=== PATIENT | female | born 1985 | race Caucasian/White ===

== ENCOUNTER 2017-04-16 22:17 | Emergency (ER) | payer MEDICAID, OTHER ==
[~2017-04-16] VITALS: Ht 157.5 cm; Wt 63.0 kg
[2017-04-16 22:22] VITALS: Ht 157.5 cm; Wt 63.0 kg
[2017-04-17] MEDS ORDERED: KETOROLAC 30 MG INJ IM STA (01:12)
[2017-04-17 01:39] LABS: URINE BLOOD (Dip) POC Trace-lysed (NEGATIVE)
--- NOTE | 2017-04-17 01:45 | RADRPT ---
PROCEDURE: CT Head without. CLINICAL INDICATION: Headache for 2 weeks. TECHNIQUE: The study was performed utilizing a multi-slice, multidetector CT scanner. Direct spira l 1 mm axial sections were obtained through the head without the use of intravenous contrast materia l. 1 or more of the following dose reduction techniques were utilized: Automated exposure control, adjustment of the mA and/or kV according to patient's size, iterative reconstruction technique. Co jewels and sagittal reformations were obtained. The images were reviewed on a PACS workstation. RADIATION DOSE: CTDIvol: 44.9 mGyDLP: 720.2 mGy-cm COMPARISON: No prior studies are available for comparison. FINDINGS: There is no intracranial hemorrhage, extra-axial fluid collection, mass lesion, midline shift or hyd rocephalus. The ventricles, sulci and cisterns are within normal limits. The white matter is unrem arkable. The brooks-white matter differentiation is preserved. The basal cisterns are patent. The m idline structures are intact. The orbits, calvarium and extracranial soft tissues are normal in herberth earance. The visualized paranasal sinuses, mastoid air cells and middle ear cavities are normally ae rated. There is pneumatization of the bilateral petrous apices without evidence of inflammatory berman ges, normal variant. IMPRESSION: 1. No acute intracranial abnormality. No intracranial hemorrhage, extra-axial fluid collection, ma ss lesion or hydrocephalous. RPTAT: HGAS .El Son MD, Date Time Electronically viewed and signed by .El Son MD, on 04/17/2017 01:45 .S/
--- NOTE | 2017-04-17 01:48 | ERD ---
ER Documentation Chief Complaint Date/Time DATE: 04/17/17 TIME: 01:46 Chief Complaint on and off headaches x 2 weeks HPI 31-year-old female otherwise healthy comes to the emergency department with worsening headache over the last 2 weeks, she states that she has had headaches for approximately 1 year now. She describes as throbbing, moderate to severe, bitemporal, throughout the day and reports that she has headaches almost every day. This is a same headache she has had for a year, however pain has become worse. She usually takes Tylenol however she has not tried anything today. She is requesting imaging at this time as she has never had imaging for these headaches for the past year. She has not had any fever, chills, blurry vision, paresthesias or weakness. ROS All systems reviewed and are negative except as per history of present illness. Medications Home Meds Active Scripts Acetamin/Butalbital/Caffeine* (Fioricet*) [id number] Tab, 1 TAB PO Q6H Y for PAIN, #20 TAB Prov:PIA BEST PA-C 04/17/17 Nitrofurantoin Monohyd Macrocr* (Macrobid*) 100 Mg Capsr, 100 MG PO BID for 7 Days, CAP Prov:PIA BEST PA-C 04/17/17 Naproxen* (Naprosyn*) 500 Mg Tablet, 500 MG PO BID Y for PAIN AND/OR INFLAMMATION, #30 TAB Prov:PIA BEST PA-C 04/17/17 Allergies Allergies: Coded Allergies: No Known Drug Allergies (Verified Allergy, Unknown, 04/16/17) PMhx/Soc Medical and Surgical Hx: pt denies Medical Hx, pt denies Surgical Hx History of Surgery: No Anesthesia Reaction: No Hx Neurological Disorder: No Hx Respiratory Disorders: No Hx Cardiac Disorders: No Hx Psychiatric Problems: No Hx Miscellaneous Medical Probl: No Hx Alcohol Use: No Hx Substance Use: No Hx Tobacco Use: No Smoking Status: Never smoker Physical Exam Vitals Vital Signs Date Time Temp Pulse Resp B/P Pulse Ox O2 Delivery O2 Flow Rate FiO2 04/17/17 01:56 89 16 127/79 99 Room Air 04/16/17 22:22 99.4 92 20 136/92 98 Physical Exam General: Well-developed, well-nourished. The patient appears in no acute distress. HEENT: Head is normocephalic, atraumatic. No scleral icterus. Pupils are equal , round, and reactive. Neck: Supple. Nontender. Lungs: Clear to auscultation. Normal air movement. Heart: Regular rate and rhythm. S1 and S2 are normal. No murmurs, gallops, or rubs. Abdomen: Nondistended. Extremities: No clubbing or cyanosis. Normal pulses. Moving extremities x 4. No weakness. Neurologic: Alert and oriented 3. No focal deficits. Cranial nerves II 12 grossly intact, speech and gait normal. Skin: Normal turgor. No rash or lesions. Results 24 hrs Laboratory Tests Test 04/17/17 01:41 Bedside Urine pH (LAB) 5.5 Bedside Urine Protein (LAB) Negative Bedside Urine Glucose (UA) Negative Bedside Urine Ketones (LAB) Negative Bedside Urine Blood Trace-lysed Bedside Urine Nitrite (LAB) Negative Bedside Urine Leukocyte Esterase (L 1+ Current Medications Medications (Trade) Dose Ordered Sig/Blanca Route PRN Reason Start Time Stop Time Status Last Admin Dose Admin Ketorolac Tromethamine (Toradol) 30 mg ONCE STAT IM 04/17/17 01:12 04/17/17 01:13 DC 04/17/17 01:45 PROCEDURE: CT Head without. CLINICAL INDICATION: Headache for 2 weeks. TECHNIQUE: The study was performed utilizing a multi-slice, multidetector CT scanner. Direct spiral 1 mm axial sections were obtained through the head without the use of intravenous contrast material. 1 or more of the following dose reduction techniques were utilized: Automated exposure control, adjustment of the mA and/or kV according to patient's size, iterative reconstruction technique. Coronal and sagittal reformations were obtained. The images were reviewed on a PACS workstation. RADIATION DOSE: CTDIvol: 44.9 mGy DLP: 720.2 mGy-cm COMPARISON: No prior studies are available for comparison. FINDINGS: There is no intracranial hemorrhage, extra-axial fluid collection, mass lesion, midline shift or hydrocephalus. The ventricles, sulci and cisterns are within normal limits. The white matter is unremarkable. The brooks-white matter differentiation is preserved. The basal cisterns are patent. The midline structures are intact. The orbits, calvarium and extracranial soft tissues are normal in appearance. The visualized paranasal sinuses, mastoid air cells and middle ear cavities are normally aerated. There is pneumatization of the bilateral petrous apices without evidence of inflammatory changes, normal variant. IMPRESSION: 1. No acute intracranial abnormality. No intracranial hemorrhage, extra-axial fluid collection, mass lesion or hydrocephalous. RPTAT: HGAS .El Son MD, Date Time Electronically viewed and signed by .El Son MD, on 04/17/2017 01: 45 .S/ CC: PIA BEST PA-C Procedures/MDM ED course: Urine was negative, she was given Toradol 30 mg IM. Patient's pain is reassessed, she states that her headache is feeling much better at this time. MDM: 31-year-old female comes in worsening headache over the last 2 weeks, differential diagnosis includes migraine versus tension in a versus occipital neuralgia, complex migraines, meningitis, encephalitis. I suspect chronic migraine, versus tension headache. Her examination is normal, she did request CT scan of the head which was done today was also normal. She will be given Naprosyn to take as well as Fioricet for moderate to severe pain. Urine shows evidence of urinary tract infection she will be given a short course of antibiotics for this however does not show any signs of pyelonephritis or kidney stones or any other intra-abdominal process. She responded well to Toradol will be discharged home at this time. Departure Diagnosis: Primary Impression: Headache Additional Impression: UTI (urinary tract infection) Condition: PIA Porras PA-C April 17, 2017 01:48
[2017-04-17] MEDS ORDERED: FIORICET PO (01:49)
[2017-04-17] MEDS ORDERED: NAPR-260 PO (01:49)
[2017-04-17] MEDS ORDERED: NITR-58 PO (01:49)
[2017-04-17 01:56] VITALS: BP 127/79; PULSE 89; RESP 16
== END 2017-04-17 01:59 | disposition home or self-care (01) ==
LOC: FTE 22:17
DX: R51 Headache (principal); N39.0 Urinary tract infection, site not specified
CPT/HCPCS: 70450; 81003; 96372; J1885; Z7502

== ENCOUNTER 2019-06-17 07:48 | Emergency (ER) | payer MEDICAID, OTHER ==
[~2019-06-17] VITALS: Ht 152.4 cm; Wt 70.7 kg
[~2019-06-17 07:48] MED LIST: BACL10TA PO; FIORICET PO; IBUP-1542 PO; NAPR-985 PO; NITR-58 PO
[2019-06-17 07:52] VITALS: BP 143/84; PULSE 72; RESP 14; Ht 152.4 cm; Wt 70.7 kg
[2019-06-17] MEDS ORDERED: IBUPROFEN 600 MG TAB PO ONE (08:30)
--- NOTE | 2019-06-17 09:00 | ERD ---
ER Documentation Chief Complaint Chief Complaint Pt with B arm pain and hand numbness X 2 weeks. HPI Patient is a 34-year-old female, no past medical history, presents the ER for concerns of bilateral arm pain as well as hand tingling for the last 2 weeks. Patient also reports bilateral shoulder pain. Patient has no chest pain, shortness of breath, unilateral weakness, slurred speech, difficulty in bleeding, facial asymmetry. 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 Patient is right-hand dominant. ROS All systems reviewed and are negative except as per history of present illness. Medications Home Meds Active Scripts Ibuprofen* (Motrin*) 600 Mg Tab, 600 MG PO Q6, #30 TAB Prov:FRANCISCO J MASSEY PA-C 06/17/19 Baclofen* (Baclofen*) 10 Mg Tablet, 10 MG PO Q8, #14 TAB Prov:FRANCISCO J MASSEY PA-C 06/17/19 Acetamin/Butalbital/Caffeine* (Fioricet*) [id number] Tab, 1 TAB PO Q6H PRN for PAIN, #20 TAB Prov:PIA BEST PA-C 04/17/17 Nitrofurantoin Monohyd Macrocr* (Macrobid*) 100 Mg Capsr, 100 MG PO BID for 7 Days, CAP Prov:PIA BEST PA-C 04/17/17 Naproxen* (Naprosyn*) 500 Mg Tablet, 500 MG PO BID PRN for PAIN AND/OR INFLAMMATION, #30 TAB Prov:PIA BEST PA-C 04/17/17 Allergies Allergies: Coded Allergies: No Known Drug Allergies (Verified Allergy, Unknown, 04/16/17) PMhx/Soc Medical and Surgical Hx: pt denies Medical Hx, pt denies Surgical Hx History of Surgery: No Anesthesia Reaction: No Hx Neurological Disorder: No Hx Respiratory Disorders: No Hx Cardiac Disorders: No Hx Psychiatric Problems: No Hx Miscellaneous Medical Probl: No Hx Alcohol Use: No Hx Substance Use: No Hx Tobacco Use: No Smoking Status: Never smoker FmHx Family History: No diabetes Physical Exam Vitals Vital Signs Date Temp Pulse Resp B/P (MAP) Pulse Ox O2 O2 Flow FiO2 Time Delivery Rate 06/17/19 98.1 72 14 143/84 99 07:52 (103) Physical Exam GENERAL: Well-developed, well-nourished female. Appears in no acute distress. Speaking in full sentences HEAD: Normocephalic, atraumatic. EYES: Pupils are equally reactive bilaterally. EOMs grossly intact. No conjunctival erythema. NECK: Supple. No meningismus. Normal range of motion of the neck. Tender to palpation of bilateral trapezius muscles. LUNG: Clear to auscultation bilaterally. No rhonchi, wheezing, rales or coarse breath sounds. HEART: Regular rate and rhythm. No murmurs, rubs or gallops. EXTREMITIES: Equal pulses bilaterally. No peripheral clubbing, cyanosis or edema. No unilateral leg swelling. NEUROLOGIC: Alert and oriented x3, cooperative. Mood and affect appropriate to situation. Cranial nerves II through XII are grossly intact. Normal speech. Motor exam: 5/5 strength in upper and lower extremities. Sensory exam: Sensation intact to light touch on all four extremities. Cerebellar function exam: No dysmetria on [id number] and hgli-[id number] test. Steady gait. No pronator drift. Equal well shooter strength bilaterally. Patient is neurovascularly intact bilaterally. Patient able to cross digits 2 and 3, give thumbs up, perform pinky to thumb opposition. Normal pulses bilaterally. SKIN: Normal color. Warm and dry. No rashes or lesions. Results 24 hrs Laboratory Tests Test 06/17/19 08:42 POC Beta HCG, Qualitative NEGATIVE Current Medications Medications Dose Sig/Blanca Start Time Status Last (Trade) Ordered Route PRN Stop Time Admin Dose Reason Admin Ibuprofen 600 mg ONCE ONCE 06/17/19 DC 06/17/19 (Motrin) PO 08:30 08:35 06/17/19 08:31 Procedures/MDM MEDICAL DECISION MAKING: Patient is a 34-year-old female presents the ER for concerns of bilateral arm pain and hand tingling for the last 2 weeks. Vital signs were reviewed. Patient is afebrile. Patient was not hypoxic. Patient was hemodynamically stable. On exam, patient did have bilateral trapezius muscles. Neuro exam was normal. Patient equal well shooter strength bilaterally. Patient's pain is likely musculoskeletal. Patient will be given a course of baclofen for muscle spasms in her trapezius muscles. Patient advised to take this medication when driving or operating any machinery. Low suspicion for ACS, CVA, TIA, arrhythmia. Low suspicion for fracture, dislocation, neurovascular injury, tendon injury. Patient was nontoxic, [id number] prior to discharge. PRESCRIPTION: Ibuprofen, baclofen Patient advised not to drive or operate any machinery when taking baclofen. DISCHARGE: At this time, patient is stable for discharge and outpatient management. I have instructed the patient to follow-up with his/her primary care physician in 1-2 days. I have discussed with the patient the possibility of needing to see a specialist for further workup and imaging studies if symptoms persist. I have instructed the patient to promptly return to the ER for any new or worsening symptoms including increased pain, fever, nausea, vomiting, weakness or LOC. The patient and/or family expressed understanding of and agreement with this plan. All questions were answered. Home care instructions were provided. Disclaimer: Inadvertent spelling and grammatical errors are likely due to EHR/dictation software use and do not reflect on the overall quality of patient care. Also, please note that the electronic time recorded on this note does not necessarily reflect the actual time of the patient encounter. Departure Diagnosis: Primary Impression: Bilateral arm pain Additional Impression: Paresthesias Condition: Fair Patient Instructions: Paraesthesias Referrals: [facility] YOU HAVE RECEIVED A MEDICAL SCREENING EXAM AND THE RESULTS INDICATE THAT YOU DO NOT HAVE A CONDITION THAT REQUIRES URGENT TREATMENT IN THE EMERGENCY DEPARTMENT. FURTHER EVALUATION AND TREATMENT OF YOUR CONDITION CAN WAIT UNTIL YOU ARE SEEN IN YOUR DOCTORS OFFICE WITHIN THE NEXT 1-2 DAYS. IT IS YOUR RESPONSIBILITY TO MAKE AN APPOINTMENT FOR FOLOW-UP CARE. IF YOU HAVE A PRIMARY DOCTOR --you should call your primary doctor and schedule an appointment IF YOU DO NOT HAVE A PRIMARY DOCTOR YOU CAN CALL OUR PHYSICIAN REFERRAL HOTLINE AT IF YOU CAN NOT AFFORD TO SEE A PHYSICIAN YOU CAN CHOSE FROM THE FOLLOWING [facility] CLINICS [facility] [address] [facility] [address] [facility] [facility] [address] [facility] [address] [facility] [address]. [facility]. [address] [facility] YOU HAVE RECEIVED A MEDICAL SCREENING EXAM AND THE RESULTS INDICATE THAT YOU DO NOT HAVE A CONDITION THAT REQUIRES URGENT TREATMENT IN THE EMERGENCY DEPARTMENT. FURTHER EVALUATION AND TREATMENT OF YOUR CONDITION CAN WAIT UNTIL YOU ARE SEEN IN YOUR DOCTORS OFFICE WITHIN THE NEXT 1-2 DAYS. IT IS YOUR RESPONSIBILITY TO MAKE AN APPOINTMENT FOR FOLOW-UP CARE. IF YOU HAVE A PRIMARY DOCTOR --you should call your primary doctor and schedule and appointment IF YOU DO NOT HAVE A PRIMARY DOCTOR YOU CAN CALL OUR PHYSICIAN REFERRAL HOTLINE AT . IF YOU CAN NOT AFFORD TO SEE A PHYSICIAN YOU CAN CHOSE FROM THE FOLLOWING [facility] INSTITUTIONS: [facility] [place] [address] [place] [address] [facility] [address] [place] [address] [facility] [address] [place] [address] Additional Instructions: Call your primary care doctor TOMORROW for an appointment during the next 1-2 days.See the doctor sooner or return here if your condition worsens before your appointment time. FRANCISCO J MASSEY PA-C Jun 17, 2019 09:00
== END 2019-06-17 08:55 | disposition home or self-care (01) ==
LOC: FTE 07:48
DX: M79.601 Pain in right arm (principal); M79.602 Pain in left arm; R20.2 Paresthesia of skin
CPT/HCPCS: 81025; Z7502; Z7610; 99283